=== PATIENT | male | born 1960 | race Two or more races ===

== ENCOUNTER 2024-06-18 05:08 | Day surgery (SDC) | payer OTHER ==
[2024-06-12 08:35] LABS: PH,URINE 5.5 (5.0-8.0); URINE APPEARANCE Clear; URINE BILIRRUBIN Negative (NEGATIVE); URINE BLOOD Negative; URINE COLOR Yellow; URINE GLUCOSE Negative (NEGATIVE); URINE KETONE Negative (NEGATIVE); URINE LEUKOCYTE Negative; URINE NITRATE Negative; URINE PROTEIN Negative (NEGATIVE); URINE UROBILINOGEN 0.2 E.U./dl
[2024-06-12 08:37] LABS: HEMATOCRIT 41.8 % (39.0-48.0); MEAN CELL VOLUME 95.4 fL (80.0-100.00); MEAN CORPUSCULAR HEMOGLOBIN 31.9 pg (27.00-32.0); MEAN CORPUSCULAR HGB CONC 33.5 g/dl (32.0-36.0); PLATELET COUNT 278 K/uL (150-450); RED BLOOD COUNT 4.38 M/uL (4.00-6.00); RED CELL DISTRIBUTION WIDTH 14.5 % (11.5-14.5)
[2024-06-12 08:39] LABS: URINE EPITHELIAL CELLS 15.6 uL (0.0-38.8); URINE RBC 42.6 uL (0.0-20.8); URINE WBC 5.2 uL (0.0-23.2)
[2024-06-12 09:05] LABS: URINE CAST 0.45 uL (0.0-1.40)
[2024-06-12 09:13] LABS: INR 0.98; PARTIAL THROMBOPLASTIN TIME 36.8 SECONDS (22.0-34.0); PROTHROMBIN TIME 10.7 SECONDS (9.0-11.5)
[2024-06-12 09:36] LABS: ALBUMIN 3.9 gm/dL (3.4-5.0); BILIRUBIN TOTAL 0.55 mg/dL (0.3-1.2); CALCIUM 9.3 mg/dL (8.5-10.1); CREATININE SERUM 0.81 mg/dL (0.70-1.30); GFR 96.88; GLOBULINA 3.2 G/DL (2.4-3.5); POTASSIUM 4.64 mEq/L (3.5-5.1); TOTAL PROTEIN 7.1 gm/dL (6.4-8.2)
[~2024-06-18 05:08] MED LIST: ADVIL; TRAMADOL
[2024-06-18] MEDS ORDERED: CEFAZOLIN SODIUM 1,000 MG VIAL ONE ×2 (06:27→10:42)
[2024-06-18] MEDS ORDERED: LIDOCAINE HCL 1%/EPINEPHRINE 20ML VIAL IJ ONE (07:03)
[2024-06-18] MEDS ORDERED: BUPIVACAINE HCL/MPF 0.5% 30ML VIAL ONE (07:04)
[2024-06-18] MEDS ORDERED: FAMOTIDINE/PF 20 MG/10 ML SYRINGE IV SCH (10:15)
[2024-06-18] MEDS ORDERED: CEFAZOLIN SODIUM 1,000 MG VIAL IV SCH (10:15)
[2024-06-18] MEDS ORDERED: FAMOTIDINE/PF 20 MG/2 ML VIAL ONE (10:42)
[2024-06-18] MEDS ORDERED: MORPHINE SULFATE 4 MG/ML VIAL IV ONE (11:25)
[2024-06-18] MEDS ORDERED: ENALAPRILAT DIHYDRATE 1.25 MG/ML VIAL IV ONE (13:02)
[2024-06-18] MEDS ORDERED: ENALAPRILAT DIHYDRATE 2.5 MG/2 ML VIAL IV ONE (13:10)
[2024-06-18] MEDS ORDERED: hydrALAZINE HCL 20 MG VIAL ONE (13:53)
== END 2024-06-18 16:30 | disposition home or self-care (01) ==
LOC: CIR.AMB 05:08
PROVIDERS: ATTEND Specialist
DX: K40.90 Unilateral inguinal hernia, without obstruction or gangrene, not specified as recurrent (principal)
CPT/HCPCS: 49505; C1781